=== PATIENT | male | born 1935 | race Caucasian/White ===

== ENCOUNTER 2018-05-23 18:50 | Emergency (ER) | payer MEDICARE ==
[~2018-05-23] VITALS: Ht 172.7 cm; Wt 81.0 kg
[2018-05-23] MEDS ORDERED: ALPRAZOLAM ER0.5 MG PO (19:24)
[2018-05-23] MEDS ORDERED: SYNTHROID25 MCG PO (19:24)
[2018-05-23] MEDS ORDERED: TEGRETOL XR100 MG PO (19:24)
[2018-05-23] MEDS ORDERED: LISINOPRIL/HYDR1 TA1 PO (19:25)
[2018-05-23] MEDS ORDERED: AMLODIPINE5 MG PO (19:26)
[2018-05-23] MEDS ORDERED: [UNRECOGNIZED DRUG - CODE] PO (19:27)
[2018-05-23] MEDS ORDERED: [UNRECOGNIZED DRUG - OTHER] PO (19:27)
[2018-05-23] MEDS ORDERED: BIOTIN MAXI10000 MC1 PO (19:28)
[2018-05-23] MEDS ORDERED: MULTIVITAMIN PO (19:28)
[2018-05-23] MEDS ORDERED: ASPIRIN81 MG PO (19:29)
[2018-05-23] MEDS ORDERED: ALPRAZOLAM0.5 M2 PO (21:18)
[2018-05-23] MEDS ORDERED: LEVOTHYROXIN150 MC1 PO (21:18)
[2018-05-23] MEDS ORDERED: MULTIVITAMI1 PO (21:22)
[2018-05-23] MEDS ORDERED: FLEXERIL PO ×2 (23:11→23:21)
[2018-05-23] MEDS ORDERED: ULTRAM50 M1 PO (23:11)
[2018-05-23 23:21] VITALS: BP 110/70
== END 2018-05-23 23:15 | disposition home or self-care (01) ==
LOC: ED 18:50
DX: M47.814 Spondylosis without myelopathy or radiculopathy, thoracic region (principal); M54.6 Pain in thoracic spine; M54.2 Cervicalgia; R50.9 Fever, unspecified; X50.3XXA Overexertion from repetitive movements, initial encounter; Y93.E9 Activity, other interior property and clothing maintenance; Y92.009 Unspecified place in unspecified non-institutional (private) residence as the place of occurrence of the external cause